=== PATIENT | male | born 1950 | race Hispanic/Latino ===

== ENCOUNTER 2018-01-10 19:09 | Emergency (ER) | payer OTHER, MEDICARE ==
[2018-01-10 19:09] VITALS: BMI 24.2
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
[2018-01-10 22:36] VITALS: BP 135/78; PULSE 85; RESP 18; TEMP 98.5; O2SAT 100
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
== END 2018-01-10 22:15 | disposition home or self-care (01) ==
LOC: ED 19:09
DX: S16.1XXA Strain of muscle, fascia and tendon at neck level, initial encounter (principal); V49.49XA Driver injured in collision with other motor vehicles in traffic accident, initial encounter; I25.10 Atherosclerotic heart disease of native coronary artery without angina pectoris